=== PATIENT | female | born 1990 | race African-American/Black ===

== ENCOUNTER 2023-10-30 12:19 | Emergency (ER) | payer MEDICAID ==
[~2023-10-30] VITALS: Ht 177.8 cm; Wt 113.4 kg
[2023-10-30 12:31] VITALS: BP 132/90; PULSE 74; RESP 16; TEMP 97.8; O2SAT 98
[2023-10-30] MEDS: CEFTRIAXONE SODIUM 500MG VIAL IM ONE (12:45)
[2023-10-30] MEDS: AZITHROMYCIN 500 MG TABLET PO ONE (12:45)
[2023-10-30 13:59] LABS: BASOPHILS % 1.3 % (0.0-2.0); EOSINOPHILS % 2.9 % (0.0-5.0); HEMATOCRIT. 33.2 % (36.0-48.0); HEMOGLOBIN. 10.3 g/dL (12.0-16.0); LYMPHOCYTES % 24.7 % (20.0-50.0); MEAN CORPUSCULAR HEMOGLOBIN 21.3 pg (28.0-32.0); MEAN CORPUSCULAR HGB CONC 31.1 g/dL (31.0-37.0); MEAN CORPUSCULAR VOLUME 68.6 fL (81.0-99.0); MEAN PLATELET VOLUME 7.4 fl (7.4-10.4); MONOCYTES % 8.2 % (2.0-8.0); NEUTROPHILS % 62.9 % (40.0-76.0); PLATELET 441 x1000/uL (130-400); RED BLOOD CELL COUNT 4.85 mill/uL (4.2-5.4); RED CELL DISTRIBUTION WIDTH 20.1 % (11.6-14.6); WHITE BLOOD COUNT 5.1 x1000/uL (4.5-11.0)
[2023-10-30 14:00] LABS: ADD RBC MORPHOLOGY YES; DIFFERENTIAL COMMENT 1
[2023-10-30 14:18] LABS: ANISOCYTOSIS 2+; HYPOCHROMASIA 1+; MICROCYTOSIS 3+; PLATELET ESTIMATE SLIGHTLY INCREASED
[2023-10-30 14:26] LABS: ALANINE AMINOTRANSFERASE < 7 IU/L (10-49); ALBUMIN 4.4 g/dL (3.2-4.8); ASPARTATE AMINOTRANSFERASE 13 IU/L (<34); BILIRUBIN TOTAL 1.2 mg/dL (0.1-1.0); CALCIUM 9.3 mg/dL (8.7-10.4); CARBON DIOXIDE 24 mEq/L (21-32); CHLORIDE 105 mEq/L (98-107); CREATININE 0.7 mg/dL (0.6-1.0); GLUCOSE 101 mg/dL (70-105); POTASSIUM 3.8 mEq/L (3.5-5.1); PROTEIN TOTAL 7.6 g/dL (6.0-8.3); SODIUM 137 mEq/L (136-145); UREA NITROGEN BLOOD 7 mg/dL (9-23)
[2023-10-30 14:28] LABS: CLARITY URINE CLOUDY (CLEAR); COLOR URINE YELLOW (YELLOW); GLUCOSE URINE NEGATIVE (NEGATIVE); KETONES URINE NEGATIVE (NEGATIVE); LEUKOCYTE ESTERASE URINE 2+ (NEGATIVE); NITRITE URINE NEGATIVE (NEGATIVE); OCCULT BLOOD URINE NEGATIVE (NEGATIVE); PROTEIN URINE 1+ (NEGATIVE)
[2023-10-30 14:35] LABS: HCG SCREEN NEGATIVE
[2023-10-30 14:45] LABS: BACTERIA URINE TRACE; RBC URINE 0-2 /hpf (0-2); SQUAMOUS EPITHELIAL CELL URINE 2+ /lpf (RARE/1+); YEAST URINE NONE SEEN
[2023-10-30] MEDS ORDERED: NITR-87 MT (15:42)
[2023-10-30] MEDS: AZITHROMYCIN 500 MG TABLET PO SCH (18:15)
[2023-10-30] MEDS: CEFTRIAXONE SODIUM 500MG VIAL IM SCH (18:15)
== END 2023-10-30 15:07 | disposition home or self-care (01) ==
LOC: ER 13:16
DX: N39.0 Urinary tract infection, site not specified (principal); Z11.3 Encounter for screening for infections with a predominantly sexual mode of transmission
CPT/HCPCS: 99284; 86592; 87491; 87591; 80053; 81003; 81025; 84703; 85025; 87086; 36415; 96372; J0696